=== PATIENT | male | born 1955 | race Caucasian/White ===

== ENCOUNTER 2021-11-26 11:43 | Observation (INO) | payer MEDICARE ==
[~2021-11-26] VITALS: Ht 193 cm; Wt 95.7 kg
[~2021-11-26 11:43] MED LIST: ASPI-1005 PO; ATOR40TA69 PO; CLOP75TA14 PO; METO-408 PO
[2021-11-26] MEDS ORDERED: FAMO20TA8 PO (12:07)
[2021-11-26] MEDS ORDERED: NITR0.4T50 SL (12:07)
[2021-11-26 12:11] LABS: BASOPHILS % (AUTO) 0.6 % (0.0-5.0); EOSINOPHILS % (AUTO) 3.3 % (0.0-8.0); LYMPHOCYTES % (AUTO) 22.5 % (21.0-51.0); MEAN CORPUSCULAR HEMOGLOBIN 28.6 pg (27.0-33.0); MEAN CORPUSCULAR VOLUME 86.7 fL (79-99); MONOCYTES % (AUTO) 8.9 % (3.0-13.0); NEUTROPHILS % (AUTO) 64.5 % (40.0-77.0); PLATELET COUNT (AUTO) 229 K/uL (130-400); RED BLOOD CELL COUNT(AUTO) 4.96 MIL/uL (4.50-6.20); RED CELL DISTRIBUTION WIDTH 13.5 % (11.0-15.5); WHITE BLOOD COUNT (AUTO) 6.4 K/uL (4.8-10.8)
[2021-11-26] MEDS ORDERED: AMIODARONE 150MG VIAL 150 MG in DEXTROSE 5%-WATER 100 ML IV STA (12:18)
[2021-11-26 12:21] LABS: INR 1.06 (0.85-1.15); PROTHROMBIN TIME 11.5 SEC (9.6-11.6)
[2021-11-26 12:23] LABS: POTASSIUM 3.7 mmol/L (3.5-5.1)
[2021-11-26 12:27] LABS: ALBUMIN 3.8 g/dL (3.5-5.0); BILIRUBIN,TOTAL 0.7 mg/dL (0.2-1.0); TOTAL PROTEIN, SERUM 7.5 g/dL (6.0-8.3)
[2021-11-26] MEDS ORDERED: ASPIRIN 325MG TAB PO ONE (12:30)
[2021-11-26 13:44] LABS: APPEARANCE,URINE CLEAR (CLEAR); BILIRUBIN,URINE NEGATIVE (NEGATIVE); COLOR,URINE YELLOW (YELLOW); GLUCOSE, URINE (UA) NEGATIVE (NEGATIVE); KETONES,URINE NEGATIVE (NEGATIVE); LEUKOCYTE ESTERASE ,URINE NEGATIVE (NEGATIVE); NITRATE,URINE NEGATIVE (NEGATIVE); OCCULT BLOOD,URINE NEGATIVE (NEGATIVE); PH,URINE 6.5 (5.0-8.0); PROTEIN,URINE NEGATIVE (NEGATIVE); UROBILINOGEN,URINE 0.2 mg/dL (0.2-1.0)
[2021-11-26] MEDS ORDERED: NITROGLYCERIN 0.4 MG SL TAB SL SCH (16:30)
[2021-11-26 20:16] VITALS: BP 106/69
[2021-11-26] MEDS ORDERED: APIX5TAB PO (20:29)
[2021-11-26] MEDS: ATORVASTATIN 40 MG TABLET PO SCH (20:30)
[2021-11-26 23:25] VITALS: BP 88/53
[2021-11-26 23:39] VITALS: BP 101/56
[2021-11-27] VITALS (7 sets, daily range): BP systolic 88–117; BP diastolic 51–74
[2021-11-27] MEDS: FAMOTIDINE 20MG TAB PO SCH (08:43)
[2021-11-27] MEDS: ASPIRIN 81MG CHEW TAB PO SCH (08:43)
[2021-11-27] MEDS: CLOPIDOGREL 75MG TAB PO SCH (08:43)
[2021-11-27] MEDS ORDERED: METO-408 PO (08:59)
[2021-11-27] MEDS ORDERED: METOPROLOL SUCCINATE 25 MG TAB.SR.24H PO SCH (09:00)
[2021-11-27 09:15] LABS: HEMATOCRIT 40.9 % (42-54); MEAN CORPUSCULAR HEMOGLOBIN 28.7 pg (27.0-33.0); MEAN CORPUSCULAR HGB CONC 32.3 g/dL (32.0-36.0); MEAN CORPUSCULAR VOLUME 88.9 fL (79-99); PLATELET COUNT (AUTO) 214 K/uL (130-400); RED CELL DISTRIBUTION WIDTH 13.8 % (11.0-15.5)
[2021-11-27 09:27] LABS: CREATININE 1.1 mg/dL (0.5-1.5); POTASSIUM 3.5 mmol/L (3.5-5.1)
[2021-11-27 10:00] LABS: EOSINOPHILS % (MANUAL) 2 % (1-6); LYMPHOCYTES % (MANUAL) 14 % (22-44); MONOCYTES % (MANUAL) 4 % (2-9); SEGMENTED NEUTROPHILS % 80 % (40-70)
[2021-11-27 10:01] LABS: MAN.DIFF COMMENT-IMPRESSION MANUAL DIFFERENTIAL; PLATELET MORPHOLOGY COMMENT ADEQUATE
[2021-11-27] MEDS: APIXABAN 5 MG TABLET PO SCH ×2 (10:21→21:04)
[2021-11-27] MEDS ORDERED: LIDOCAINE HCL-MPF 1% 2ML VIAL IV PRN (18:30)
[2021-11-27] MEDS ORDERED: POTASSIUM CHLORIDE 10% ELIXIR 20 MEQ/15 ML UDCUP PO PRN (18:30)
[2021-11-27] MEDS ORDERED: POTASSIUM CHLORIDE 20MEQ/100ML 100 ML IV PRN (18:30)
[2021-11-27] MEDS: ATORVASTATIN 40 MG TABLET PO SCH (21:04)
[2021-11-27] MEDS: KCL 20 MEQ ERTAB PO PRN (21:04)
[2021-11-28] MEDS: KCL 20 MEQ ERTAB PO PRN (00:18)
[2021-11-28 03:58] VITALS: BP 115/58
[2021-11-28 08:20] VITALS: BP 102/56
[2021-11-28 08:25] LABS: HEMATOCRIT 41.9 % (42-54); MEAN CORPUSCULAR HEMOGLOBIN 28.5 pg (27.0-33.0); PLATELET COUNT (AUTO) 209 K/uL (130-400); RED BLOOD CELL COUNT(AUTO) 4.71 MIL/uL (4.50-6.20); RED CELL DISTRIBUTION WIDTH 13.6 % (11.0-15.5); WHITE BLOOD COUNT (AUTO) 6.7 K/uL (4.8-10.8)
[2021-11-28 08:36] LABS: POTASSIUM 4.2 mmol/L (3.5-5.1)
[2021-11-28] MEDS: ASPIRIN 81MG CHEW TAB PO SCH (08:57)
[2021-11-28] MEDS: APIXABAN 5 MG TABLET PO SCH (08:58)
[2021-11-28] MEDS: CLOPIDOGREL 75MG TAB PO SCH (08:58)
[2021-11-28] MEDS: FAMOTIDINE 20MG TAB PO SCH (08:58)
[2021-11-28] MEDS ORDERED: METOPROLOL SUCCINATE 25 MG TAB.SR.24H PO SCH (09:00)
[2021-11-28 09:14] LABS: EOSINOPHILS % (MANUAL) 2 % (1-6); LYMPHOCYTES % (MANUAL) 15 % (22-44); MAN.DIFF COMMENT-IMPRESSION MANUAL DIFFERENTIAL; MONOCYTES % (MANUAL) 4 % (2-9); SEGMENTED NEUTROPHILS % 79 % (40-70)
[2021-11-28 09:15] LABS: PLATELET MORPHOLOGY COMMENT ADEQUATE
[2021-11-28] MEDS ORDERED: METO-408 PO (11:23)
[2021-11-28 12:00] VITALS: BP 109/60
[2021-11-29] MEDS ORDERED: METOPROLOL SUCCINATE 25 MG TAB.SR.24H PO SCH (09:00)
== END 2021-11-28 15:45 | disposition home or self-care (01) ==
LOC: EDH 11:43 → EDHIP 15:09 → INTOOBSV 15:09 → 2DH 18:35
PROVIDERS: ADMIT Internal Medicine; ATTEND Internal Medicine
DX: I48.0 Paroxysmal atrial fibrillation (principal); I48.20 Chronic atrial fibrillation, unspecified; R07.89 Other chest pain; I21.4 Non-ST elevation (NSTEMI) myocardial infarction; I25.5 Ischemic cardiomyopathy; I25.10 Atherosclerotic heart disease of native coronary artery without angina pectoris; E11.9 Type 2 diabetes mellitus without complications; I10 Essential (primary) hypertension; E78.5 Hyperlipidemia, unspecified; I25.2 Old myocardial infarction; Z87.891 Personal history of nicotine dependence; Z79.899 Other long term (current) drug therapy; Z79.02 Long term (current) use of antithrombotics/antiplatelets; Z79.01 Long term (current) use of anticoagulants; Z79.82 Long term (current) use of aspirin; Z95.5 Presence of coronary angioplasty implant and graft
CPT/HCPCS: 36415 ×3; 71045; 80048 ×2; 80053; 81003; 83880; 84484 ×3; 85025 ×3; 85610; 93005; 96365; 99285; G0378 ×29; J0282; J7060

== ENCOUNTER → 2021-12-08 | Outpatient (CLI) | payer MEDICARE ==
[~2021-12-08] MED LIST changes: +APIX5TAB PO; -ASPI-1005 PO; +FAMO20TA8 PO; +NITR0.4T50 SL; +REGADENOSON 0.4 MG/5 ML PF SYG IVP SCH
== END | disposition home or self-care (01) ==
LOC: SHCH 08:27
PROVIDERS: ATTEND Internal Medicine Cardiovascular Disease
DX: I48.0 Paroxysmal atrial fibrillation (principal); E78.5 Hyperlipidemia, unspecified; Z95.5 Presence of coronary angioplasty implant and graft
CPT/HCPCS: 78452; 96374; 93017; J2785; A9500 ×2

== ENCOUNTER 2022-02-01 21:12 | Observation (INO) | payer MEDICARE ==
[~2022-02-01] VITALS: Ht 193 cm; Wt 99.5 kg
[~2022-02-01 21:12] MED LIST changes: -REGADENOSON 0.4 MG/5 ML PF SYG IVP SCH
[2022-02-01 21:28] LABS: BASOPHILS % (AUTO) 0.8 % (0.0-5.0); EOSINOPHILS % (AUTO) 3.3 % (0.0-8.0); HEMATOCRIT 40.6 % (42-54); LYMPHOCYTES % (AUTO) 23.9 % (21.0-51.0); MEAN CORPUSCULAR HEMOGLOBIN 28.8 pg (27.0-33.0); MEAN CORPUSCULAR HGB CONC 32.8 g/dL (32.0-36.0); MEAN CORPUSCULAR VOLUME 87.9 fL (79-99); MONOCYTES % (AUTO) 10.7 % (3.0-13.0); NEUTROPHILS % (AUTO) 60.9 % (40.0-77.0); PLATELET COUNT (AUTO) 217 K/uL (130-400); RED BLOOD CELL COUNT(AUTO) 4.62 MIL/uL (4.50-6.20); RED CELL DISTRIBUTION WIDTH 13.4 % (11.0-15.5); WHITE BLOOD COUNT (AUTO) 8.4 K/uL (4.8-10.8)
[2022-02-01 21:35] LABS: CREATININE 1.1 mg/dL (0.5-1.5); POTASSIUM 3.7 mmol/L (3.5-5.1)
[2022-02-01 21:43] LABS: ALBUMIN 3.8 g/dL (3.5-5.0); TOTAL PROTEIN, SERUM 7.2 g/dL (6.0-8.3)
[2022-02-01 21:51] LABS: B-TYPE NATRIURETIC PEPTIDE 95 pg/mL (0-100)
[2022-02-01] MEDS ORDERED: APIXABAN 5 MG TABLET PO ONE (22:30)
[2022-02-01] MEDS ORDERED: APIXABAN 2.5 MG TABLET PO ONE (22:31)
[2022-02-01] MEDS ORDERED: ACETAMINOPHEN 325 MG TAB PO PRN ×2 (23:00)
[2022-02-01] MEDS ORDERED: NITROGLYCERIN 0.4 MG SL TAB SL PRN (23:00)
[2022-02-01] MEDS ORDERED: ONDANSETRON 4MG INJ IV PRN (23:00)
[2022-02-01] MEDS ORDERED: LACTULOSE 20 GM/30 ML UDCUP PO PRN (23:00)
[2022-02-02 03:32] VITALS: BP 104/58
[2022-02-02] MEDS ORDERED: SOTA80TA PO (05:27)
[2022-02-02 07:09] LABS: INR 1.07 (0.85-1.15); PROTHROMBIN TIME 11.6 SEC (9.6-11.6)
[2022-02-02 07:10] LABS: PARTIAL THROMBOPLASTIN TIME 28.4 SEC (26.3-35.5)
[2022-02-02] MEDS ORDERED: INSULIN HUMULIN R 100 UNIT/ML 3ML SQ SCH (07:30)
[2022-02-02 08:00] VITALS: BP 103/56
[2022-02-02] MEDS ORDERED: METOPROLOL TARTRATE 25 MG TAB PO SCH (09:00)
[2022-02-02] MEDS ORDERED: ENOXAPARIN SODIUM 40 MG/0.4 ML SYRINGE SQ SCH (09:00)
[2022-02-02] MEDS ORDERED: FAMOTIDINE 20MG TAB PO SCH (09:00)
[2022-02-02] MEDS ORDERED: NITROGLYCERIN 0.4 MG SL TAB SL SCH (11:30)
[2022-02-02 12:00] VITALS: BP 105/60
[2022-02-02] MEDS ORDERED: ATORVASTATIN 20 MG TABLET PO SCH (21:00)
[2022-02-02] MEDS ORDERED: APIXABAN 5 MG TABLET PO SCH (21:00)
[2022-02-02] MEDS ORDERED: ATORVASTATIN 40 MG TABLET PO SCH (21:00)
[2022-02-03] MEDS ORDERED: FAMOTIDINE 20MG TAB PO SCH (09:00)
[2022-02-03] MEDS ORDERED: CLOPIDOGREL 75MG TAB PO SCH (09:00)
== END 2022-02-02 15:00 | disposition home or self-care (01) ==
LOC: EDH 21:12 → EDHIP 22:57 → INTOOBSV 22:57 → 4DH 02-02 03:30
PROVIDERS: ADMIT Internal Medicine; ATTEND Internal Medicine
DX: R07.89 Other chest pain (principal); I10 Essential (primary) hypertension; E11.9 Type 2 diabetes mellitus without complications; E78.5 Hyperlipidemia, unspecified; I25.2 Old myocardial infarction; Z79.02 Long term (current) use of antithrombotics/antiplatelets; Z95.5 Presence of coronary angioplasty implant and graft; Z95.1 Presence of aortocoronary bypass graft
CPT/HCPCS: 99285; 84484 ×3; 80053; 83880; 85025; 36415 ×2; 71045; 93005 ×3; 85610; 85730; 82948 ×2; G0378 ×4; J1650

== ENCOUNTER 2022-02-11 08:27 | Day surgery (SDC) | payer MEDICARE ==
[2022-02-10 12:44] LABS: BASOPHILS % (AUTO) 0.9 % (0.0-5.0); EOSINOPHILS % (AUTO) 2.5 % (0.0-8.0); HEMATOCRIT 41.7 % (42-54); LYMPHOCYTES % (AUTO) 24.8 % (21.0-51.0); MEAN CORPUSCULAR HEMOGLOBIN 28.6 pg (27.0-33.0); MEAN CORPUSCULAR HGB CONC 32.1 g/dL (32.0-36.0); MEAN CORPUSCULAR VOLUME 88.9 fL (79-99); MONOCYTES % (AUTO) 7.3 % (3.0-13.0); NEUTROPHILS % (AUTO) 64.3 % (40.0-77.0); PLATELET COUNT (AUTO) 205 K/uL (130-400); RED BLOOD CELL COUNT(AUTO) 4.69 MIL/uL (4.50-6.20); RED CELL DISTRIBUTION WIDTH 13.3 % (11.0-15.5); WHITE BLOOD COUNT (AUTO) 6.5 K/uL (4.8-10.8)
[2022-02-10 12:54] LABS: CREATININE 0.9 mg/dL (0.5-1.5); POTASSIUM 4.3 mmol/L (3.5-5.1)
[2022-02-10 12:58] LABS: INR 1.03 (0.85-1.15); PROTHROMBIN TIME 11.2 SEC (9.6-11.6)
[2022-02-10 13:00] LABS: PARTIAL THROMBOPLASTIN TIME 21.7 SEC (26.3-35.5)
[2022-02-10 13:08] LABS: APPEARANCE,URINE CLEAR (CLEAR); BILIRUBIN,URINE NEGATIVE (NEGATIVE); COLOR,URINE COLORLESS (YELLOW); GLUCOSE, URINE (UA) NEGATIVE (NEGATIVE); KETONES,URINE NEGATIVE (NEGATIVE); LEUKOCYTE ESTERASE ,URINE NEGATIVE Leu/uL (NEGATIVE); NITRATE,URINE NEGATIVE (NEGATIVE); OCCULT BLOOD,URINE NEGATIVE (NEGATIVE); PROTEIN,URINE NEGATIVE (NEGATIVE); UROBILINOGEN,URINE 0.2 mg/dL (0.2-1.0)
[2022-02-10 13:09] LABS: B-TYPE NATRIURETIC PEPTIDE 108 pg/mL (0-100)
[2022-02-10 14:28] VITALS: BP 110/64
[2022-02-11] VITALS (10 sets, daily range): BP systolic 101–109; BP diastolic 56–69
[~2022-02-11] VITALS: Ht 193 cm; Wt 97.1 kg
[~2022-02-11 08:27] MED LIST changes: +0.9%NACL 1000ML 1,000 ML IV ONE; -CLOP75TA14 PO; +CLOP75TA32 PO; -FAMO20TA8 PO; -METO-408 PO; +OMEP40CA21 PO; +SOTA80TA PO
[2022-02-11] MEDS ORDERED: IOHEXOL 350 MG/ML 100ML INFUS..BTL IV ONE (10:20)
[2022-02-11] MEDS ORDERED: IOHEXOL-350 50ML VIAL IV ONE (10:20)
[2022-02-11] MEDS ORDERED: MIDAZOLAM HCL 5 MG/ML 2ML VIAL IV ONE (10:20)
== END 2022-02-11 15:10 | disposition home or self-care (01) ==
LOC: DAH 08:27
PROVIDERS: ATTEND Internal Medicine Cardiovascular Disease
DX: I25.118 Atherosclerotic heart disease of native coronary artery with other forms of angina pectoris (principal); I25.2 Old myocardial infarction; I48.0 Paroxysmal atrial fibrillation; E78.5 Hyperlipidemia, unspecified; Z87.891 Personal history of nicotine dependence; Z82.49 Family history of ischemic heart disease and other diseases of the circulatory system; Z95.5 Presence of coronary angioplasty implant and graft; Z79.01 Long term (current) use of anticoagulants; Z79.899 Other long term (current) drug therapy; Z79.82 Long term (current) use of aspirin
CPT/HCPCS: 80048; 83880; 85025; 85610; 85730; 81003; 36415; 71045; 93458; C1894; C1760; Q9965; J7030; J1644; J2250; Q9967 ×2; A4222; A4221; A4663; A4216; A4606; A4223 ×3; 93005; 99156; 99157

== ENCOUNTER → 2023-01-20 | Outpatient (CLI) | payer MEDICARE ==
[~2023-01-20] MED LIST changes: -0.9%NACL 1000ML 1,000 ML IV ONE
[2023-01-20 12:40] LABS: BASOPHILS # (AUTO) 0.05 K/uL (0.00-0.20); BASOPHILS % (AUTO) 0.8 % (0.0-5.0); EOSINOPHILS # (AUTO) 0.15 K/uL (0.00-0.70); EOSINOPHILS % (AUTO) 2.5 % (0.0-8.0); HEMATOCRIT 43.5 % (42-54); IMMATURE GRANULOCYTE ABSOLUTE 0.02 K/uL (0-1); LYMPHOCYTES # (AUTO) 1.7 K/uL (1.0-4.8); LYMPHOCYTES % (AUTO) 28.1 % (21.0-51.0); MEAN CORPUSCULAR HGB CONC 32.2 g/dL (32.0-36.0); MEAN CORPUSCULAR VOLUME 90.2 fL (79-99); MONOCYTES # (AUTO) 0.5 K/uL (0.1-1.0); MONOCYTES % (AUTO) 8.6 % (3.0-13.0); NEUTROPHILS # (AUTO) 3.5 K/uL (1.8-7.7); NEUTROPHILS % (AUTO) 59.7 % (40.0-77.0); PLATELET COUNT (AUTO) 191 K/uL (130-400); RED BLOOD CELL COUNT(AUTO) 4.82 MIL/uL (4.50-6.20); RED CELL DISTRIBUTION WIDTH 13.1 % (11.0-15.5); WHITE BLOOD COUNT (AUTO) 5.9 K/uL (4.8-10.8)
[2023-01-20 13:16] LABS: ALBUMIN 3.7 g/dL (3.5-5.0); BILIRUBIN,TOTAL 0.7 mg/dL (0.2-1.0); CREATININE 0.9 mg/dL (0.5-1.5); MAGNESIUM 2.2 mg/dL (1.80-2.40); POTASSIUM 4.1 mmol/L (3.5-5.1); THYROID STIMULATING HORMONE 1.45 uIU/mL (0.36-3.74); TOTAL PROTEIN, SERUM 7.4 g/dL (6.0-8.3)
== END | disposition home or self-care (01) ==
LOC: LAB 10:44
PROVIDERS: ATTEND Internal Medicine Cardiovascular Disease
DX: I48.0 Paroxysmal atrial fibrillation (principal)
CPT/HCPCS: 36415; 80053; 83735; 84443; 85025

== ENCOUNTER → 2023-03-16 | Outpatient (CLI) | payer MEDICARE | END | disposition home or self-care (01) | LOC: SHCH 12:44 | PROVIDERS: ATTEND Internal Medicine Cardiovascular Disease | DX: I08.8 Other rheumatic multiple valve diseases (principal); I48.0 Paroxysmal atrial fibrillation; I11.9 Hypertensive heart disease without heart failure; F17.200 Nicotine dependence, unspecified, uncomplicated | CPT/HCPCS: 93306 ==

== ENCOUNTER 2023-03-30 15:38 | Emergency (ER) | payer MEDICARE ==
[~2023-03-30] VITALS: Ht 193 cm; Wt 102.1 kg
[2023-03-30 15:40] VITALS: BP 122/59; PULSE 57; RESP 16
[2023-03-30 15:46] VITALS: O2SAT 98
[2023-03-30] MEDS ORDERED: LIDOCAINE HCL 1% 20 ML VIAL INJ SCH (16:30)
[2023-03-30] MEDS ORDERED: DIPH,PERTUSS(ACELL),TET VAC/PF 0.5 ML VIAL IM ONE (16:30)
[2023-03-30] MEDS ORDERED: MUPI22OI2 TP (16:55)
== END 2023-03-30 17:03 | disposition home or self-care (01) ==
LOC: EDH 15:38
DX: S51.811A Laceration without foreign body of right forearm, initial encounter (principal); I25.2 Old myocardial infarction; Z79.01 Long term (current) use of anticoagulants; Z79.02 Long term (current) use of antithrombotics/antiplatelets; Z79.899 Other long term (current) drug therapy; Z95.5 Presence of coronary angioplasty implant and graft; W18.39XA Other fall on same level, initial encounter; Y93.89 Activity, other specified; Y92.89 Other specified places as the place of occurrence of the external cause; Y99.8 Other external cause status
CPT/HCPCS: 12002; 73090; 90471; 90715

== ENCOUNTER → 2023-04-09 | Emergency (ER) | payer MEDICARE ==
[~2023-04-09] VITALS: Ht 193 cm; Wt 102.1 kg
[~2023-04-09] MED LIST changes: +CEPH500B PO; +MUPI22OI2 TP
[2023-04-09 10:40] VITALS: BP_DIAS 108; PULSE 54; RESP 56
== END ==
LOC: EDH 10:39
DX: S51.811D Laceration without foreign body of right forearm, subsequent encounter (principal); Z79.01 Long term (current) use of anticoagulants; Z79.02 Long term (current) use of antithrombotics/antiplatelets; Z79.899 Other long term (current) drug therapy; Z95.5 Presence of coronary angioplasty implant and graft; X58.XXXD Exposure to other specified factors, subsequent encounter

== ENCOUNTER → 2024-09-13 | Outpatient (CLI) | payer MEDICARE ==
[2024-09-13 12:19] LABS: BASOPHILS # (AUTO) 0.04 K/uL (0.00-0.20); BASOPHILS % (AUTO) 0.7 % (0.0-5.0); EOSINOPHILS # (AUTO) 0.15 K/uL (0.00-0.70); EOSINOPHILS % (AUTO) 2.7 % (0.0-8.0); HEMATOCRIT 43.4 % (42-54); IMMATURE GRANULOCYTE ABSOLUTE 0.01 K/uL (0-1); LYMPHOCYTES # (AUTO) 1.6 K/uL (1.0-4.8); LYMPHOCYTES % (AUTO) 27.8 % (21.0-51.0); MEAN CORPUSCULAR HGB CONC 32.3 g/dL (32.0-36.0); MEAN CORPUSCULAR VOLUME 89.9 fL (79-99); MONOCYTES # (AUTO) 0.5 K/uL (0.1-1.0); MONOCYTES % (AUTO) 9.1 % (3.0-13.0); NEUTROPHILS # (AUTO) 3.4 K/uL (1.8-7.7); NEUTROPHILS % (AUTO) 59.5 % (40.0-77.0); PLATELET COUNT (AUTO) 204 K/uL (130-400); RED BLOOD CELL COUNT(AUTO) 4.83 MIL/uL (4.50-6.20); RED CELL DISTRIBUTION WIDTH 13.3 % (11.0-15.5); WHITE BLOOD COUNT (AUTO) 5.6 K/uL (4.8-10.8)
[2024-09-13 12:50] LABS: POTASSIUM 4.2 mmol/L (3.5-5.1); THYROID STIMULATING HORMONE 1.98 uIU/mL (0.36-3.74)
== END | disposition home or self-care (01) ==
LOC: LAB 10:37
PROVIDERS: ATTEND Internal Medicine Cardiovascular Disease
DX: I11.0 Hypertensive heart disease with heart failure (principal); I50.31 Acute diastolic (congestive) heart failure; E78.5 Hyperlipidemia, unspecified; E55.9 Vitamin D deficiency, unspecified; I48.0 Paroxysmal atrial fibrillation
CPT/HCPCS: 36415; 80048; 82306; 84443; 85025